=== PATIENT | male | born 1990 | race African-American/Black ===

== ENCOUNTER 2018-12-22 06:42 | Emergency (ER) | payer BC ==
[~2018-12-22] VITALS: Ht 172.7 cm; Wt 77.3 kg
[2018-12-22 06:44] VITALS: BP 120/71
[2018-12-22] MEDS ORDERED: PRED20TA PO (07:09)
[2018-12-22] MEDS ORDERED: NAPR-56 PO (07:09)
== END 2018-12-22 07:25 | disposition home or self-care (01) ==
LOC: ER 06:43
DX: G56.03 Carpal tunnel syndrome, bilateral upper limbs (principal); Z79.899 Other long term (current) drug therapy
CPT/HCPCS: 99283